=== PATIENT | male | born 1965 | race Caucasian/White ===

== ENCOUNTER 2018-11-18 08:52 | Day surgery (SDC) | payer BC ==
[~2018-11-18] VITALS: Ht 167.6 cm; Wt 77.6 kg
--- NOTE | ~2018-11-18 | OR ---
[facility] [address], [place] [address] Draft DATE OF OPERATION: 11/18/2018 SURGEON: Ava Garza MD PREOPERATIVE DIAGNOSES: 1. Prolapsing internal and external hemorrhoids. 2. History of stapled hemorrhoidectomy (elsewhere). POSTOPERATIVE DIAGNOSES: 1. Prolapsing internal and external hemorrhoids. 2. History of stapled hemorrhoidectomy (elsewhere). PROCEDURE PERFORMED: Internal and external hemorrhoidectomy x3. ANESTHESIA: Saddle block (Ema Veliz and sedation and local 10 mL of 0.25% Marcaine with epinephrine. INDICATION: This 53-year-old white man is self-referred with complaints of hemorrhoidal disease. He is noted to have prolapsing hemorrhoids in the left lateral aspect. He has undergone stapled hemorrhoidectomy elsewhere. He is not having bleeding currently, but is bothered by the protruding hemorrhoids for perianal hygiene concerns another similar such issues. He has undergone colonoscopy in the past as well as sigmoid resection for diverticular disease. He was evaluated thoroughly by Dr. Patricia in [place] for an elevated PSA of 15, ultimately found to be spurious and prostate biopsy negative. He is admitted at this time to undergo hemorrhoidectomy certainly of the left lateral hemorrhoidal complex, which is the most dominant, but others as noted at time of operation. The risks of bleeding, infection, pain as expected following hemorrhoidectomy, and so forth were all reviewed with the patient and his . They understand and wished to proceed. FINDINGS: The dominant external and internal hemorrhoidal complex was in the left lateral aspect. Additionally, however, there was a left posterior accessory and a right posterior accessory plexus which were excised as well. There was no sign of neoplasm though the left posterior accessory hemorrhoidal complex did have a hypertrophied anal papilla associated with it, I believe. PATIENT NAME: MCKAY HERRERA OPERATIVE REPORT DATE OF : 65 REPORT #: [id number] PHYSICIAN: AVA GARZA MD PCP: NO PRIMARY CARE PHYSICIAN REPORT IS CONFIDENTIAL AND NOT TO BE RELEASED WITHOUT AUTHORIZATION [facility] [address], [place] [address] Draft DESCRIPTION OF PROCEDURE: The patient was brought to the operating room, given a saddle block type anesthetic. Once the anesthetic had set well, he was placed in a prone jackknife position. The buttocks were taped apart. Perianal area was clipped and prepared with a DuraPrep solution and draped sterilely. He received preoperative antibiotic cefoxitin in a modified bowel prep. Digital examination was undertaken showing no sign of rectal mass, so there was a firm polypoid anal papilla associated in the left posterior lateral aspect. Anal retractor was placed, irrigation undertaken. The area was suctioned free. The most dominant hemorrhoidal complex was in the left lateral position. Using 3-0 chromic on a UR needle, the occluded hemorrhoid was secured and using electrocautery, the hemorrhoid excised completely, taking care to avoid underlying anal muscle. The pedicle was once again secured with a chromic and the hemorrhoid amputated and passed for pathology. The mucosa was closed almost completely allowing egress externally. A similar technique was used in the right posterior and left posterior accessory areas. It is noted that the left posterior accessory hemorrhoidal complex had an associated hypertrophied anal papilla associated with it which was relatively large. Irrigation was undertaken. A 10 mL of 0.25% Marcaine with epinephrine injected locally. A rolled Gel-Foam and bacitracin was placed into the anal canal for its tamponading effect. A peripad was applied. He was returned to the supine position, allowed to emerge from sedation and taken to recovery room in good condition. BLOOD LOSS: Minimal. COMPLICATIONS: None. MD ZEKE Ovalles/SANDRA /[id number] Copies: PATIENT NAME: MCKAY HERRERA OPERATIVE REPORT DATE OF : 65 REPORT #: [id number] PHYSICIAN: AVA GARZA MD PCP: NO PRIMARY CARE PHYSICIAN REPORT IS CONFIDENTIAL AND NOT TO BE RELEASED WITHOUT AUTHORIZATION [facility] [address] [place] [address] [place], [place] [address] Draft ~ PATIENT NAME: MCKAY HERRERA OPERATIVE REPORT DATE OF : 65 REPORT #: [id number] PHYSICIAN: AVA GARZA MD PCP: NO PRIMARY CARE PHYSICIAN REPORT IS CONFIDENTIAL AND NOT TO BE RELEASED WITHOUT AUTHORIZATION
[~2018-11-18 08:52] MED LIST: ACID CONTROL150 MG PO; EFFEXOR XR75 MG PO; TRAZODONE HCL50 MG PO
[2018-11-18] MEDS ORDERED: DILTIAZEM HCL10 GM TOP (14:05)
[2018-11-18] MEDS ORDERED: OXYCODON-ACETA1 EAC2 PO (14:05)
[2018-11-18] MEDS ORDERED: IBUPROFEN600 MG PO (14:05)
[2018-11-18] MEDS ORDERED: MAPAP325 MG PO (14:06)
--- NOTE | 2018-11-18 14:06 | NUR ---
11/18/18 1406 Gayle Quispe 1352- PT ARRIVES TO PACU ALERT AND ORIENTED. PT REPORTS NO PAIN OR NAUSEA. RESP EVEN AND UNLABORED. 1405- PT SITTING UP DRINKING CRANBERRY JUICE. TOLERATING WELL.
== END 2018-11-18 14:50 | disposition home or self-care (01) ==
LOC: DS 08:52
PROVIDERS: Surgery
PROC: 06BY0ZC Excision of Hemorrhoidal Plexus, Open Approach (ICD-10-PCS; principal; 2018-11-18 11:00)
DX: K64.8 Other hemorrhoids (principal); K21.9 Gastro-esophageal reflux disease without esophagitis; F43.10 Post-traumatic stress disorder, unspecified; K64.4 Residual hemorrhoidal skin tags; Z98.890 Other specified postprocedural states; Z88.0 Allergy status to penicillin; Z90.49 Acquired absence of other specified parts of digestive tract; Z79.899 Other long term (current) drug therapy
CPT/HCPCS: 00902; J0694; J1100; J1885; J2250; J2405; J2704; J7120

== ENCOUNTER 2019-06-06 17:33 | Emergency (ER) | payer BC ==
[~2019-06-06] VITALS: Ht 167.6 cm; Wt 77.6 kg
--- OUTSIDE RECORDS SUMMARY | ~2019-06-06 | XMS | Clinical Summary ---
Demographics + + + | Address | [address] | | | [place] [address] | + + + | Home Phone | | + + + | Preferred Language | Unknown | + + + | Marital Status | Single | + + + | Synagogue Affiliation | 1041 | + + + | Race | Unknown | + + + | Ethnic Group | Unknown | + + + Author + + + | Author | [facility] (Historical as of | | | 04-16-19) | + + + | Organization | [facility] (Historical as of | | | 04-16-19) | + + + | Address | Unknown | + + + | Phone | Unavailable | + + + Support + + +---------+ + | Name | Relationship | Address | Phone | + + +---------+ + | Lani Herrera | ECON | Unknown | | + + +---------+ + | Rossy Herrera | ECON | Unknown | | + + +---------+ + Care Team Providers + +------+ + | Care Cashier Wrapper Name | Role | Phone | + +------+ + | Dr. Cem | PP | Unavailable | + +------+ + Allergies + + + + + + | Active Allergy | Reactions | Severity | Noted | Comments | | | | | Date | | + + + + + + | Psyllium | Other (See Comments) | Medium | 10/15/19 | Patient reports he | | | | | 16 | experiences extreme | | | | | | constipation and | | | | | | abdominal pain. | + + + + + + | Penicillins | Rash | Medium | 04/01/20 | | | | | | 12 | | + + + + + + Current Medications + + +-------+---------+------+------+-------+ | Prescription | Sig. | Disp. | Refills | Star | End | Statu | | | | | | t | Date | s | | | | | | Date | | | + + +-------+---------+------+------+-------+ | trazodone | Take 50 mg by mouth | | | | | Activ | | (DESYREL) 50 MG | nightly. | | | | | e | | tablet | | | | | | | + + +-------+---------+------+------+-------+ | venlafaxine | Take 75 mg by mouth | | | | | Activ | | (EFFEXOR-XR) 150 MG | daily. | | | | | e | | 24 hr capsule | | | | | | | + + +-------+---------+------+------+-------+ | ciprofloxacin | Take 500 mg by mouth | | | | | Activ | | (CIPRO) 500 MG | 2 (two) times | | | | | e | | tablet | daily. | | | | | | + + +-------+---------+------+------+-------+ | | Take 1 tablet by | | | | | Activ | | sulfamethoxazole-tri | mouth 2 (two) times | | | | | e | | methoprim (BACTRIM | daily. | | | | | | | DS) 800-160 MG per | | | | | | | | tablet | | | | | | | + + +-------+---------+------+------+-------+ | metroNIDAZOLE | Take 500 mg by mouth | | | | | Activ | | (FLAGYL) 500 MG | 3 (three) times | | | | | e | | tablet | daily. | | | | | | + + +-------+---------+------+------+-------+ Active Problems + + + | Problem | Noted Date | + + + | Hematochezia | 04/01/2012 | + + + Family History + + +------+ + | Medical History | Relation | Name | Comments | + + +------+ + | Heart disease | Father | | | + + +------+ + + +------+ + + | Relation | Name | Status | Comments | + +------+ + + | Father | | | | + +------+ + + Social History + +-------+ +--------+------+ | Tobacco Use | Types | Packs/Day | Years | Date | | | | | Used | | + +-------+ +--------+------+ | Former Smoker | | | | | + +-------+ +--------+------+ + +---+---+---+ | Smokeless Tobacco: | | | | | Never Used | | | | + +---+---+---+ + + +---------+ + | Alcohol Use | Drinks/We | oz/Week | Comments | | | ek | | | + + +---------+ + | No | | | occ | + + +---------+ + + + + | Sex Assigned at | Date Recorded | | | | + + + | Not on file | | + + + Last Filed Vital Signs + + + + | Vital Sign | Reading | Time Taken | + + + + | Blood Pressure | 118/82 | 10/25/2015 4:28 PM PST | + + + + | Pulse | 101 | 10/25/2015 4:28 PM PST | + + + + | Temperature | 36.6 C (97.8 F) | 10/05/2015 12:10 PM PST | + + + + | Respiratory Rate | 14 | 10/05/2015 12:10 PM PST | + + + + | Oxygen Saturation | 99% | 10/25/2015 4:28 PM PST | + + + + | Inhaled Oxygen | - | - | | Concentration | | | + + + + | Weight | 83.5 kg (184 lb) | 10/25/2015 4:28 PM PST | + + + + | Height | 167.6 cm (5' 6") | 10/25/2015 4:28 PM PST | + + + + | Body Mass Index | 29.7 | 10/25/2015 4:28 PM PST | + + + + Plan of Treatment + + + + + | Health Maintenance | Due Date | Last Done | Comments | + + + + + | Vaccine: | | | | | Dtap/Tdap/Td (1 - | 4 | | | | Tdap) | | | | + + + + + | Vaccine: Zoster (1 | | | | | of 2) | 5 | | | + + + + + | Vaccine: Influenza | | | | | (#1) | 9 | | | + + + + + Results Not on filefrom Last 3 Months Insurance +---------+--------+ +------+-------+ + | Payer | Benefi | Subscriber | Type | Phone | Address | | | t Plan | ID | | | | | | / | | | | | | | Group | | | | | +---------+--------+ +------+-------+ + | PREMERA | PREMER | [id number] | | | [address] [address] | | | [employer] | | | | [place], [place] | | | [place] | | | | [phone] | | | FED | | | | | | | PPO | | | | | +---------+--------+ +------+-------+ + + +--------+ +--------+ + + | Guarantor Name | Accoun | Relation to | Date | Phone | Billing Address | | | t Type | Patient | of | | | | | | | | | | + +--------+ +--------+ + + | MCKAY HERRERA | Person | Self [birth year] | Home: | [address] | | [place] | [place] | | 1965 | [phone] | [place] | | | [place] | | | [phone] | + +--------+ +--------+ + +
--- OUTSIDE RECORDS SUMMARY | ~2019-06-06 | XMS | Clinical Summary ---
Demographics + + + | Address | [address] | | | [place] [address] | + + + | Home Phone | | + + + | Preferred Language | Unknown | + + + | Marital Status | | + + + | Orthodox Affiliation | Unknown | + + + | Race | Unknown | + + + | Ethnic Group | Unknown | + + + Author + + + | Author | [facility] | | | and [place] | + + + | Organization | [facility] | | | and [place] | + + + | Address | Unknown | + + + | Phone | Unavailable | + + + Care Team Providers + +------+ + | Care Quality Control Expert Name | Role | Phone | + +------+ + PCP | Unavailable | + +------+ + Allergies Not on File Medications Not on file Active Problems Not on file Family History + + +------+ + | Medical History | Relation | Name | Comments | + + +------+ + | Heart disease | Father | | | + + +------+ + + +------+ + + | Relation | Name | Status | Comments | + +------+ + + | Father | | | | + +------+ + + | Father | | | | + +------+ + + Social History + +-------+ +--------+------+ | Tobacco Use | Types | Packs/Day | Years | Date | | | | | Used | | + +-------+ +--------+------+ | Former Smoker | | | | | + +-------+ +--------+------+ + + + | Sex Assigned at | Date Recorded | | | | + + + | Not on file | | + + + + + + + | Job Start Date | Occupation | Industry | + + + + | Not on file | Not on file | Not on file | + + + + + + + + | Travel History | Travel Start | Travel End | + + + + + + | No recent travel history available. | + + Last Filed Vital Signs + + + + | Vital Sign | Reading | Time Taken | + + + + | Blood Pressure | 118/82 | 10/25/20151631 PST | + + + + | Pulse | 101 | 10/25/20151631 PST | + + + + | Temperature | 36.6 C (97.8 F) | 10/05/20151216 PST | + + + + | Respiratory Rate | 14 | 10/05/20151216 PST | + + + + | Oxygen Saturation | - | - | + + + + | Inhaled Oxygen | - | - | | Concentration | | | + + + + | Weight | 83.5 kg (184 lb) | 10/25/20151631 PST | + + + + | Height | 167.6 cm (5' 6") | 10/25/20151631 PST | + + + + | Body Mass Index | 29.7 | 10/25/20151631 PST | + + + + Plan [...]
--- OUTSIDE RECORDS SUMMARY | ~2019-06-06 | XMS | Clinical Summary ---
Demographics + + + | Address | [address] | | | [place] [address] | + + + | Home Phone | | + + + | Preferred Language | Unknown | + + + | Marital Status | Single | + + + | Cheondoism Affiliation | 1041 | + + + | Race | Unknown | + + + | Ethnic Group | Unknown | + + + Author + + + | Author | [facility] (Historical as of | | | 04-16-19) | + + + | Organization | [facility] (Historical as of | | | 04-16-19) [...] Team Providers + +------+ + | Care Chief Sustainability Officer Name | Role | Phone | + [...] +------+-------+ + | [employer] | PREMER | [id number] | | | [address] [address] | | | [employer]UE | | | | [place], [place] | | | [place] | | | | [phone] | | | FED | | | [...] | Self | [birth year] | Home: | [address] | | [place] | [place] | | 1965 | [phone] | [place] | | | [place] | | | [phone] | + +--------+ +--------+ + +
--- OUTSIDE RECORDS SUMMARY | ~2019-06-06 | XMS | Clinical Summary ---
Demographics + + + | Address | [address] | | | [place] [address] | + + + | Home Phone | | + + + | Preferred Language | Unknown | + + + | Marital Status | | + + + | Spiritism Affiliation | Unknown | + + + | Race | Unknown | + + + | Ethnic Group | Unknown | + + + Author + + + | Author | [facility] | | | and [place] | + + + | Organization | [facility] | | | and [place] | + + + | Address | Unknown | + + + | Phone | Unavailable | + + + Care Team Providers + +------+ + | Care Web Production Assistant Name | Role | Phone | + [...]
[~2019-06-06 17:33] MED LIST changes: +DILTIAZEM HCL10 GM TOP; +IBUPROFEN600 MG PO; +MAPAP325 MG PO; +OXYCODON-ACETA1 EAC2 PO
== END 2019-06-06 20:15 | disposition home or self-care (01) ==
LOC: ED 17:33
DX: S39.91XA Unspecified injury of abdomen, initial encounter (principal); Z88.0 Allergy status to penicillin; Z79.899 Other long term (current) drug therapy; W11.XXXA Fall on and from ladder, initial encounter
CPT/HCPCS: 74177; 80053; 81001; 83690; 85025; 99284-25; Q9967